=== PATIENT | female | born 1990 | race Caucasian/White ===

== ENCOUNTER → 2021-06-23 09:32 | Outpatient (CLI) | payer OTHER, SELFPAY | PROVIDERS: PCP Physician Assistant; Visit Provider Physician Assistant | DX: R30.0 Dysuria (principal) | CPT/HCPCS: 87077; 87086; 87186 ==

== ENCOUNTER → 2021-12-07 08:15 | Outpatient (CLI) | payer OTHER, SELFPAY ==
[2021-12-07 19:34] LABS: Add Manual Diff / Slide Review NO; Basophils Absolute Auto 0 /uL (0-100); Basophils Percent Auto 0.2 % (0-2); Eosinophils Absolute Auto 0 /uL (0-450); Eosinophils Percent Auto 0.3 % (2-4); Hematocrit 37.1 % (36-46); Hemoglobin 12.4 g/dL (12.0-16.0); Lymphocytes Absolute Auto 2200 /uL (1100-4500); Lymphocytes Percent Auto 23.5 % (25-40); Mean Corpuscular HGB Conc 33.5 % (30-36); Mean Corpuscular Volume 89.6 fL (80-100); Monocytes Absolute Auto 400 /uL (0-900); Monocytes Percent Auto 4.1 % (3-14); Neutrophils Absolute Auto 6600 /uL (1500-7000); Neutrophils Percent Auto 71.9 % (50-75); Platelet Count 379 X10^3/uL (150-400); Red Blood Cell Count 4.14 X10^6/uL (4.0-5.2); Red Cell Distribution Width 13.2 % (11.6-14.8); White Blood Cell Count 9.2 X10^3/uL (4.5-11.0)
[2021-12-07 20:26] LABS: COVID19 - ORCAS (NP or Nasal) Negative (Negative)
== END ==
PROVIDERS: Obstetrics & Gynecology Reproductive Endocrinology; PCP Physician Assistant; Visit Provider Physician Assistant
DX: Z01.812 Encounter for preprocedural laboratory examination (principal); Z20.822 Contact with and (suspected) exposure to COVID-19
CPT/HCPCS: 85025; U0003

== ENCOUNTER → 2022-03-03 08:09 | Outpatient (CLI) | payer OTHER, SELFPAY ==
[2022-03-03 19:02] LABS: HCG Quantitative /Beta subunit 41.3 mIU/mL
== END ==
PROVIDERS: PCP Physician Assistant; Visit Provider Obstetrics & Gynecology Reproductive Endocrinology
DX: Z32.00 Encounter for pregnancy test, result unknown (principal)
CPT/HCPCS: 84702

== ENCOUNTER → 2022-03-05 08:06 | Outpatient (CLI) | payer OTHER, SELFPAY ==
[2022-03-05 19:04] LABS: Thyroid Stimulating Hormone 0.463 uIU/mL (0.47-4.68)
== END ==
PROVIDERS: PCP Physician Assistant; Visit Provider Obstetrics & Gynecology Reproductive Endocrinology
DX: Z13.29 Encounter for screening for other suspected endocrine disorder (principal); Z32.01 Encounter for pregnancy test, result positive
CPT/HCPCS: 84443; 84702

== ENCOUNTER → 2022-03-09 09:05 | Outpatient (CLI) | payer OTHER, SELFPAY ==
[2022-03-09 19:22] LABS: HCG Quantitative /Beta subunit < 2.4 mIU/mL
== END ==
PROVIDERS: PCP Physician Assistant; Visit Provider Obstetrics & Gynecology Reproductive Endocrinology
DX: Z32.00 Encounter for pregnancy test, result unknown (principal)
CPT/HCPCS: 84702

== ENCOUNTER → 2022-09-29 11:24 | Outpatient (CLI) | payer OTHER, SELFPAY ==
[2022-09-29 19:56] LABS: HEMOLYSIS < 15 (0-50); Iron 105 ug/dL (37-170)
[2022-09-29 20:01] LABS: Alanine Aminotransferase 17 IU/L (<35); Albumin 4.6 g/dL (3.5-5.0); Albumin Globulin Ratio 1.6 (1.0-2.8); Alkaline Phosphatase 57 U/L (38-126); Aspartate Aminotransferase 20 IU/L (14-36); BUN Creatinine Ratio 20.9 (6-22); Bilirubin Total 0.4 mg/dL (0.2-1.3); Blood Urea Nitrogen 14 mg/dL (7-17); Calcium 9.6 mg/dL (8.4-10.2); Carbon Dioxide 22 mmol/L (22-32); Chloride 103 mmol/L (98-107); Estimated Glomerular Filt Rate > 60 mL/min (>60); Globulin 2.9 g/dL (1.7-4.1); Glucose 84 mg/dL (70-100); HEMOLYSIS < 15 (0-50); Sodium 137 mmol/L (137-145); Total Protein 7.5 g/dL (6.3-8.2)
[2022-09-29 20:14] LABS: Free T3, Triiodothyronine Free 3.19 pg/mL (2.77-5.27); Free T4, Direct Thyroxine 1.27 ng/dL (0.78-2.19)
[2022-09-29 20:17] LABS: Vitamin D 25 Hydroxy (D3) 50.9 ng/mL (30.0-100.0)
[2022-09-29 20:28] LABS: Percent Iron Saturation 28 % (15-50); Total Iron Binding Capacity 375 ug/dL (265-497); Transferrin 304 mg/dL (206-381)
[2022-09-29 23:40] LABS: Vitamin B12 956 pg/mL (239-931)
[2022-10-01 06:14] LABS: Thyroid Peroxidase Antibodies 10 IU/mL (0-34)
[2022-10-01 18:47] LABS: Anti Thyroglobulin Antibody <1.0 IU/mL (0.0-0.9)
[2022-10-12 02:53] LABS: Triiodothyronine T3 Reverse 16.6
== END ==
PROVIDERS: PCP Physician Assistant; Visit Provider Physician Assistant
DX: N92.6 Irregular menstruation, unspecified (principal); R53.83 Other fatigue; Z83.49 Family history of other endocrine, nutritional and metabolic diseases
CPT/HCPCS: 80053; 82306; 82607; 83540; 83550; 84439; 84443; 84481; 84482; 86376; 86800

== ENCOUNTER → 2022-11-29 10:58 | Outpatient (CLI) | payer OTHER, SELFPAY ==
[2022-11-29 19:48] LABS: Progesterone, Total 3.44 ng/mL
== END ==
PROVIDERS: PCP Physician Assistant; Visit Provider Nurse Practitioner Adult Health
DX: N92.6 Irregular menstruation, unspecified (principal)
CPT/HCPCS: 84144

== ENCOUNTER 2023-12-27 18:18 | Emergency (ER) | payer OTHER, SELFPAY ==
[2023-12-27 18:45] VITALS: BP 140/94; PULSE 88; RESP 16; TEMP 37.3; O2SAT 99; BMI 23.3
[2023-12-27 19:28] LABS: Add Manual Diff / Slide Review NO; Basophils Absolute Auto 100 /uL (0-100); Basophils Percent Auto 0.4 % (0-2); Eosinophils Absolute Auto 0 /uL (0-450); Eosinophils Percent Auto 0.3 % (2-4); Hematocrit 39.6 % (36-46); Hemoglobin 13.2 g/dL (12.0-16.0); Lymphocytes Absolute Auto 3200 /uL (1100-4500); Lymphocytes Percent Auto 24.9 % (25-40); Mean Corpuscular HGB Conc 33.2 % (30-36); Mean Corpuscular Hemoglobin 29.9 PG (26-34); Monocytes Absolute Auto 600 /uL (0-900); Monocytes Percent Auto 4.6 % (3-14); Neutrophils Absolute Auto 8800 /uL (1500-7000); Neutrophils Percent Auto 69.8 % (50-75); Platelet Count 378 X10^3/uL (150-400); Red Cell Distribution Width 13.9 % (11.6-14.8); White Blood Cell Count 12.7 X10^3/uL (4.5-11.0)
[2023-12-27 19:41] LABS: Alanine Aminotransferase 16 IU/L (<35); Albumin 4.6 g/dL (3.5-5.0); Albumin Globulin Ratio 1.4 (1.0-2.8); Alkaline Phosphatase 48 U/L (38-126); Aspartate Aminotransferase 22 IU/L (14-36); BUN Creatinine Ratio 16.7 (6-22); Bilirubin Total 0.6 mg/dL (0.2-1.3); Blood Urea Nitrogen 12 mg/dL (7-17); Calcium 9.3 mg/dL (8.4-10.2); Carbon Dioxide 24 mmol/L (22-32); Chloride 109 mmol/L (98-107); Estimated Glomerular Filt Rate > 60 mL/min (>60); Globulin 3.4 g/dL (1.7-4.1); Glucose 91 mg/dL (70-100); HEMOLYSIS < 15 (0-50); Potassium 3.9 mmol/L (3.4-5.1); Sodium 140 mmol/L (137-145)
[2023-12-27 19:57] LABS: HCG Quantitative /Beta subunit 48.2 mIU/mL
--- NOTE | 2023-12-27 21:05 | DI.US.S_ITS ---
PROCEDURE: US PELVIC COMPLETE INDICATIONS: BLEEDING; LEFT PAIN TECHNIQUE: Real-time scanning was performed of the pelvic organs, with image documentation. Additional endovaginal scanning was necessary due to incomplete visualization of the adnexal and endometrial structures by transabdominal scanning. COMPARISON: None. FINDINGS: Uterus: Uterus is anteverted and normal in size at 7.9 x 3.7 x 5.4 cm. The myometrium is homogeneous. The endometrium measures 8.1 mm combined thickness. No endometrial mass or fluid. No evidence of intrauterine gestation. Ovaries: The right ovary measures 2.2 x 3.8 x 2.2 cm, with a calculated ovarian volume of 9.6 cc. The left ovary measures 3.2 x 2.0 x 2.2 cm, with a calculated ovarian volume of 7.4 cc. The ovaries have a normal sonographic appearance. Left than 12 follicles can be seen in each ovary. There is a 3.5 x 1.9 x 4.3 cm solid-appearing structure with minimal vascularity in left adnexa medial to left ovary. Other: 12 cc of fluid with low level echo is noted within posterior cul-de-sac. IMPRESSION: 1. No evidence of intrauterine gestation. No endometrial mass or fluid. 2. Normal appearing bilateral ovaries. 3. 3.5 x 1.9 x 4.3 cm hypoechoic and solid appearing structure with minimal internal vascularity seen in left adnexa, ectopic gestation cannot be excluded. Clinical correlation and sonographic follow-up is recommended. 4. Small amount of fluid within posterior cul-de-sac. We strive to produce accurate, complete, and clear reports of imaging services. To assist us in improving patient care, this report was composed using standard report templates and voice recognition software. Therefore, it may contain abnormal punctuation, insertions and/or omissions. Occasional wrong-word or sound-alike substitutions may occur. Though we review the report and make efforts to correct it, we do recommend that the report be read carefully in proper context to recognize any text inaccuracies. Dictated by: Skyler Leo M.D. on 12/27/2023 at 22:37 Approved by: Skyler Leo M.D. on 12/27/2023 at 22:39
[2023-12-27 22:39] LABS: Bacteria Urine Occasional (0-1); Culture Indicated Urine Cult Not Indicated; RBC Urine 30-100/HPF (0-5/HPF); Squamous Epithelial Cell Urine 1-5 /HPF (0-5/HPF); Urine Volume 10mL (spun); WBC Urine 0-1/HPF (0-5/HPF)
[2023-12-27 23:10] VITALS: BP 120/62; PULSE 77; O2SAT 97
--- NOTE | 2023-12-28 00:13 | ED_ITS ---
HPI - General Adult General Chief complaint: Vaginal Bleeding Stated complaint: pelvic pain, heavy bleeding, positive preg test Time Seen by Provider: 12/28/23 00:12 Source: patient Mode of arrival: Ambulatory History of Present Illness HPI narrative: 33-year-old woman struggling with infertility underwent intrauterine insemination 2 weeks ago with an hCG trigger shot and letrozole. She has had brown spotting for the last 48 hours in at approximately 1:15 p.m. in the afternoon today she she felt vaginal flowing similar to menstrual flow with a significant amount of left-sided pelvic cramping. She had not experienced that is severe cramping with other IUI experiences. She does not describe fever, chills, nausea, vomiting, diarrhea. She is not dizzy when she is standing. She does have an appointment with her infertility barrel [facility] hook tomorrow morning at 7:45 a.m.. Related Data Home Medications Medication Instructions Recorded Confirmed No Known Home Medications 12/22/21 12/22/21 Allergies Allergy/AdvReac Type Severity Reaction Status Date / Time No Known Drug Allergies Allergy Verified 09/29/22 11:13 Review of Systems Review of Systems Narrative: Pertinent positive and negative findings as per HPI Patient History Social History Smoking Status: Never smoker Smoking Status: Never smoker alcohol intake frequency: holidays/special occasions only Substance Use Type: does not use Exam Initial Vital Signs Initial Vital Signs: Vital Signs Temperature 99.1 F 12/27/23 18:45 Pulse Rate 88 12/27/23 18:45 Respiratory Rate 16 12/27/23 18:45 Blood Pressure 140/94 H 12/27/23 18:45 Pulse Oximetry 99 12/27/23 18:45 Oxygen Delivery Method Room Air 12/27/23 18:45 General: Alert appropriate, emotionally upset but no physical distress at this time. Respiratory: Able to speak in full sentences, no obvious respiratory distress Skin: No obvious rashes, warm and dry Neurologic: Grossly intact no obvious asymmetries or abnormalities Psych: appropriate insight and affect, cooperative Course Orders Ordered: ED Orders 12/27/23 19:20 Complete Blood Count AUTO DIFF Stat Comprehensive Metabolic Panel Stat HCG Quantitative /Beta subunit Stat Type and Screen Stat 12/27/23 21:00 Urine Microscopic Stat 12/27/23 21:05 US pelvic complete Stat Vital Signs Vital signs: Vital Signs - 8 hr 12/27/23 18:45 12/27/23 23:10 12/27/23 23:10 Temperature 99.1 F Pulse Rate 88 77 Respiratory Rate 16 Blood Pressure 140/94 H 120/62 Pulse Oximetry 99 97 Oxygen Delivery Method Room Air Room Air Medical Decision Making Lab Data 12/27/23 19:20 12/27/23 19:20 Labs: Lab Results 12/27/23 12/27/23 Range/Units 19:20 21:00 WBC 12.7 H (4.5-11.0) X10^3/uL RBC 4.40 (4.0-5.2) X10^6/uL Hgb 13.2 (12.0-16.0) g/dL Hct 39.6 (36-46) % MCV 90.0 (80-100) fL MCH 29.9 (26-34) PG MCHC 33.2 (30-36) % RDW 13.9 (11.6-14.8) % Plt Count 378 (150-400) X10^3/uL Neut % (Auto) 69.8 (50-75) % Lymph % (Auto) 24.9 L (25-40) % [place] % (Auto) 4.6 (3-14) % Eos % (Auto) 0.3 L (2-4) % Baso % (Auto) 0.4 (0-2) % Neut # (Auto) 8800 H (0908-8251) /uL Lymph # (Auto) 3200 (5528-7561) /uL [place] # (Auto) 600 (0-900) /uL Eos # (Auto) 0 (0-450) /uL Baso # (Auto) 100 (0-100) /uL Sodium 140 (137-145) mmol/L Potassium 3.9 (3.4-5.1) mmol/L Chloride 109 H (98-107) mmol/L Carbon Dioxide 24 (22-32) mmol/L BUN 12 (7-17) mg/dL Creatinine 0.72 (0.52-1.04) mg/dL Estimated GFR > 60 (>60) mL/min BUN/Creatinine Ratio 16.7 (6-22) Glucose 91 (70-100) mg/dL Calcium 9.3 (8.4-10.2) mg/dL Total Bilirubin 0.6 (0.2-1.3) mg/dL AST 22 (14-36) IU/L ALT 16 (<35) IU/L Alkaline Phosphatase 48 (38-126) U/L Total Protein 8.0 (6.3-8.2) g/dL Albumin 4.6 (3.5-5.0) g/dL Globulin 3.4 (1.7-4.1) g/dL Albumin/Globulin Ratio 1.4 (1.0-2.8) HCG, Quant 48.2 mIU/mL Urine RBC 30-100/hpf H (0-5/HPF) Urine WBC 0-1/hpf (0-5/HPF) Ur Squamous Epith Cells 1-5 /hpf (0-5/HPF) Urine Bacteria Occasional (0-1) (None) Ur Culture Indicated? Cult not indicated Vol Urine Centrifuged 10ml (spun) Blood Type A Positive Antibody Screen Negative Point of Care Testing Test Results Negative Urine Dip Bedside Urine Glucose Negative Bedside Urine Bilirubin - Negative Bedside Urine Ketone +/- 5 Urine Specific [place] 1.015 Bedside Urine Occult Blood +++ Bedside Urine pH 7.5 Bedside Urine Protein - Negative Bedside Urine Urobilinogen - Negative Bedside Urine Leukocytes - Negative Esterase Point of care testing: Point of Care Testing Test Results Negative Urine Dip Bedside Urine Glucose Negative Bedside Urine Bilirubin - Negative Bedside Urine Ketone +/- 5 Urine Specific [place] 1.015 Bedside Urine Occult Blood +++ Bedside Urine pH 7.5 Bedside Urine Protein - Negative Bedside Urine Urobilinogen - Negative Bedside Urine Leukocytes - Negative Esterase Imaging Data Pelvic ultrasound: Radiologist's Impression: PROCEDURE: US PELVIC COMPLETE INDICATIONS: BLEEDING; LEFT PAIN TECHNIQUE: Real-time scanning was performed of the pelvic organs, with image documentation. Additional endovaginal scanning was necessary due to incomplete visualization of the adnexal and endometrial structures by transabdominal scanning. COMPARISON: None. FINDINGS: Uterus: Uterus is anteverted and normal in size at 7.9 x 3.7 x 5.4 cm. The myometrium is homogeneous. The endometrium measures 8.1 mm combined thickness. No endometrial mass or fluid. No evidence of intrauterine gestation. Ovaries: The right ovary measures 2.2 x 3.8 x 2.2 cm, with a calculated ovarian volume of 9.6 cc. The left ovary measures 3.2 x 2.0 x 2.2 cm, with a calculated ovarian volume of 7.4 cc. The ovaries have a normal sonographic appearance. Left than 12 follicles can be seen in each ovary. There is a 3.5 x 1.9 x 4.3 cm solid-appearing structure with minimal vascularity in left adnexa medial to left ovary. Other: 12 cc of fluid with low level echo is noted within posterior cul-de-sac. IMPRESSION: 1. No evidence of intrauterine gestation. No endometrial mass or fluid. 2. Normal appearing bilateral ovaries. 3. 3.5 x 1.9 x 4.3 cm hypoechoic and solid appearing structure with minimal internal vascularity seen in left adnexa, ectopic gestation cannot be excluded. Clinical correlation and sonographic follow-up is recommended. 4. Small amount of fluid within posterior cul-de-sac. We strive to produce accurate, complete, and clear reports of imaging services. To assist us in improving patient care, this report was composed using standard report templates and voice recognition software. Therefore, it may contain abnormal punctuation, insertions and/or omissions. Occasional wrong-word or sound-alike substitutions may occur. Though we review the report and make efforts to correct it, we do recommend that the report be read carefully in proper context to recognize any text inaccuracies. Dictated by: Skyler Leo M.D. on 12/27/2023 at 22:37 MDM Narrative Medical decision making narrative: CC: Vaginal bleeding and left-sided pelvic cramping Complicating co-morbidities: Intrauterine insemination 2 weeks ago Data collected from: patient Differential considered: Failed a UA, ectopic , ovarian torsion Exam documented above, pertinent findings include: She does have some mild pelvic tenderness but certainly does not have a surgical abdomen Lab Test results independently reviewed as above. Pertinent findings: CBC is unremarkable Chemistries are reassuring Quantitative hCG is 48.2 Imaging studies independently reviewed: Pelvic ultrasound does not show an intrauterine fetus. There is a 3.5 x 1.9 x 4.3 cm hypoechoic and solid appearing structure with minimal internal vascularity seen in left adnexa, can not exclude ectopic. Consultations: Discussed with JORDEN Ruano Given the fact that the quantitative hCG is 48, the structure in the ultrasound is not vascular and the patient has a follow up appointment with her OBGYN within 7 hours, she to felt that discharge home was safe at this time Discussion: 33-year-old woman with failed intrauterine insemination 2 weeks ago. Pelvic cramping and vaginal bleeding. No sign of infection or significant anemia. Ultrasound shows an adnexal abnormality of uncertain significance. Labs and ultrasound report will be given to the patient, at this point I think she is safe for discharge. We have talked about reasons to return to the emergency department. She has follow up scheduled within 8 hours with her OBGYN. Discharge Plan Departure Patient Disposition: Home Clinical Impression: Vaginal bleeding, Pelvic cramping Activity Restrictions/Additional Instructions: I am sorry that you are continuing to struggle with this. Your hCG today is 48. Your ultrasound does not show anything within your uterus. There is a minimally vascular area in your left adnexa. At this time there was no indication for hospitalization. I do not think this is a ectopic , if it is it is far too early even to consider methotrexate. It given you copies of your blood work from today as well as the ultrasound results from today to take with you to your appointment with your infertility specialist later this morning at 7:45 a.m.. If you find that you are getting worse or develop any new symptoms, please feel free to return to the emergency department for further evaluation. Prescriptions: No Action No Known Home Medications Referrals: Rubina Cortes PA-C [Primary Care Provider] - Stand Alone Forms: Patient Portal/API
[2023-12-28 00:54] VITALS: BP 141/77; PULSE 68; RESP 14; O2SAT 98
== END 2023-12-28 00:56 | disposition home or self-care (01) ==
PROVIDERS: Emergency Provider Emergency Medicine; PCP Physician Assistant
DX: R10.2 Pelvic and perineal pain (principal); N93.9 Abnormal uterine and vaginal bleeding, unspecified; R79.89 Other specified abnormal findings of blood chemistry
CPT/HCPCS: 36415; 76830; 76856; 80053; 81003; 81015; 81025; 84702; 85025; 86850; 86900; 86901; 93975; 99282; 99284

== ENCOUNTER → 2024-02-07 10:01 | Outpatient (CLI) | payer OTHER, SELFPAY ==
[2024-02-07 20:11] LABS: Thyroid Stimulating Hormone 0.486 uIU/mL (0.47-4.68)
[2024-02-10 22:31] LABS: Cardiolipin Ab IgG <9 GPL U/mL (0-14); Cardiolipin Ab IgM <9 MPL U/mL (0-12)
[2024-02-12 18:37] LABS: Dilute Russell Viper Venom 37.9 sec (0.0-47.0); Lupus Reflex Interpretation Comment: (.); PTT-LA 38.2 sec (0.0-43.5)
== END ==
PROVIDERS: PCP Physician Assistant
DX: Z31.438 Encounter for other genetic testing of female for procreative management (principal); Z13.29 Encounter for screening for other suspected endocrine disorder; N96 Recurrent pregnancy loss
CPT/HCPCS: 84443; 85598; 85613

== ENCOUNTER → 2025-02-21 09:34 | Outpatient (CLI) | payer OTHER, SELFPAY ==
[2025-02-21 18:52] LABS: Add Manual Diff / Slide Review NO; Basophils Absolute Auto 0 /uL (0-100); Basophils Percent Auto 0.5 % (0-2); Eosinophils Absolute Auto 100 /uL (0-450); Eosinophils Percent Auto 1.1 % (2-4); Hematocrit 41.9 % (36-46); Hemoglobin 14.1 g/dL (12.0-16.0); Lymphocytes Absolute Auto 2200 /uL (1100-4500); Lymphocytes Percent Auto 35.5 % (25-40); Mean Corpuscular HGB Conc 33.6 % (30-36); Mean Corpuscular Hemoglobin 29.7 PG (26-34); Mean Corpuscular Volume 88.4 fL (80-100); Monocytes Absolute Auto 300 /uL (0-900); Monocytes Percent Auto 5.4 % (3-14); Neutrophils Absolute Auto 3600 /uL (1500-7000); Neutrophils Percent Auto 57.5 % (50-75); Platelet Count 343 X10^3/uL (150-400); Red Blood Cell Count 4.74 X10^6/uL (4.0-5.2); Red Cell Distribution Width 13.3 % (11.6-14.8); White Blood Cell Count 6.2 X10^3/uL (4.5-11.0)
[2025-02-21 19:06] LABS: Alanine Aminotransferase 19 IU/L (<35); Albumin 4.8 g/dL (3.5-5.0); Albumin Globulin Ratio 1.8 (1.0-2.8); Alkaline Phosphatase 49 U/L (38-126); Aspartate Aminotransferase 24 IU/L (14-36); Bilirubin Total 0.4 mg/dL (0.2-1.3); Blood Urea Nitrogen 16 mg/dL (7-17); Calcium 9.7 mg/dL (8.4-10.2); Carbon Dioxide 27 mmol/L (22-32); Chloride 104 mmol/L (98-107); Estimated Glomerular Filt Rate > 60 mL/min (>60); Globulin 2.6 g/dL (1.7-4.1); Glucose 92 mg/dL (70-99); HEMOLYSIS < 15 (0-50); Potassium 4.4 mmol/L (3.4-5.1); Sodium 141 mmol/L (137-145); Total Protein 7.4 g/dL (6.3-8.2)
[2025-02-21 19:21] LABS: Vitamin D 25 Hydroxy (D3) 38.7 ng/mL (30.0-100.0)
[2025-02-21 19:34] LABS: Thyroid Stimulating Hormone 0.407 uIU/mL (0.47-4.68)
[2025-02-21 19:40] LABS: Ferritin 35 ng/mL (6-137)
== END ==
PROVIDERS: PCP Family Medicine; Visit Provider Family Medicine
DX: K62.5 Hemorrhage of anus and rectum (principal); D64.9 Anemia, unspecified
CPT/HCPCS: 80053; 82306; 82728; 84443; 85025

== ENCOUNTER → 2025-04-08 13:24 | Outpatient (CLI) | payer OTHER, SELFPAY ==
[2025-04-08 20:44] LABS: Free T3, Triiodothyronine Free 3.98 pg/mL (2.77-5.27); Free T4, Direct Thyroxine 1.12 ng/dL (0.78-2.19); T4 Total Thyroxine 9.08 ug/dL (5.5-11.0)
[2025-04-08 20:58] LABS: Thyroid Stimulating Hormone 1.02 uIU/mL (0.47-4.68)
== END ==
PROVIDERS: PCP Family Medicine; Visit Provider Family Medicine
DX: R79.89 Other specified abnormal findings of blood chemistry (principal)
CPT/HCPCS: 84436; 84439; 84443; 84480; 84481; 86376; 86800